=== PATIENT | male | born 1980 | race Hispanic/Latino ===

== ENCOUNTER 2021-11-26 00:12 | Inpatient (IN) | payer SELFPAY ==
[2021-11-26 01:03] LABS: #Lymphocytes 2.1 thou/uL (1.20-3.40); #Monocytes 0.5 thou/uL (0.11-0.59); #Neutrophils 5.7 thou/uL (1.40-6.50); %Basophils 0.2 % (0.0-1.0); %Eosinophils 0.4 % (0.0-10.0); %Lymphocytes 24.9 % (21.0-51.0); %Monocytes 5.5 % (0.0-10.0); Hemoglobin 15.3 g/dL (14.0-18.0); Mean Corpuscular HGB CONC 34.2 g/dL (32.0-36.0); Mean Corpuscular Hemoglobin 31.9 pg (27.0-31.0); Mean Platelet Volume 7.7 fL (7.4-10.4); Platelet Count 178 thou/uL (130-400); RBC Distribution Width 11.3 % (11.5-14.5); Red Blood Cell (RBC) Count 4.81 mill/uL (4.70-6.10); White Blood Cell (WBC) Count 8.3 thou/uL (4.8-10.8)
[2021-11-26 01:24] LABS: ALT (SGPT) 199 U/L (8-55); AST (SGOT) 104 U/L (5-34); Albumin 3.7 g/dL (3.5-5.0); Alkaline Phosphatase 68 U/L (40-110); Anion Gap 16 mmol/L (10-20); BUN (Urea Nitrogen) 13 mg/dL (8.9-20.6); Bilirubin, Total 1.7 mg/dL (0.2-1.2); Calc. Creatinine Clearance 0 mL/min (70-130); Calcium 8.3 mg/dL (7.8-10.44); Carbon Dioxide 20 mmol/L (22-29); Chloride 100 mmol/L (98-107); Globulin 2.6 g/dL (2.4-3.5); Glucose 481 mg/dL (70-105); Potassium 4.1 mmol/L (3.5-5.1); Protein, Total 6.3 g/dL (6.0-8.3); Sodium 132 mmol/L (136-145)
[2021-11-26 02:40] VITALS: BMI 28.8
[2021-11-26 03:10] LABS: SARS-CoV-2 NAA Rapid Test Not Detected (NotDetected)
[2021-11-26] MEDS ORDERED: Dextrose 5% in Water 1,000 ML IV PRN (04:01)
[2021-11-26] MEDS ORDERED: Ondansetron PF 4 MG/2 ML Vial IVP PRN (04:01)
[2021-11-26] MEDS ORDERED: Ondansetron ODT 4 MG TAB PO PRN (04:01)
[2021-11-26] MEDS ORDERED: traMADol HCl 50 MG TAB PO PRN (04:01)
[2021-11-26] MEDS ORDERED: Dextrose 50% Abboject 50 ML SYRINGE SLOW IVP PRN (04:01)
[2021-11-26] MEDS: HumaLOG 300 UNITS/3 ML VIAL SC PRN ×2 (04:29→14:09)
[2021-11-26] MEDS: traMADol HCl 50 MG TAB PO SCH ×3 (04:30→16:15)
[2021-11-26] MEDS: Acetaminophen 500 MG TAB PO SCH ×3 (04:30→16:13)
[2021-11-26] MEDS: Ibuprofen 200 MG TAB PO SCH ×3 (04:30→16:14)
[2021-11-26] MEDS: Lactated Ringer's 1,000 ML IV SCH ×2 (04:31→14:08)
[2021-11-26] MEDS ORDERED: ceFAZolin 2 GM/Dextrose 50 ML 2 GM in Premix Bag 1 BAG IVPB SCH (06:45)
[2021-11-26 08:57] VITALS: TEMP 98.4
[2021-11-26] MEDS ORDERED: Famotidine 20 MG TAB PO SCH (09:00)
[2021-11-26 09:45] LABS: Magnesium 1.7 mg/dL (1.6-2.6); Phosphorus 2.1 mg/dL (2.3-4.7)
[2021-11-26] MEDS ORDERED: ceFAZolin 2 GM/Dextrose 50 ML IVPB ONE (10:08)
[2021-11-26] MEDS ORDERED: Midazolam HCl 2 mg/2 ml Vial ONE (10:08)
[2021-11-26] MEDS ORDERED: Fentanyl 100 MCG/2 ML VIAL ONE ×2 (10:14→11:37)
[2021-11-26] MEDS ORDERED: Lidocaine 1% PF 5 ML VIAL ONE (10:34)
[2021-11-26] MEDS ORDERED: Dexamethasone 20 MG/5 ML VIAL ONE (10:34)
[2021-11-26] MEDS ORDERED: Ondansetron PF 4 MG/2 ML Vial ONE (10:34)
[2021-11-26] MEDS ORDERED: PROPOFOL 200 MG/20 ML VIAL ONE (10:34)
[2021-11-26] MEDS ORDERED: Ketorolac Tromethamine 30 MG/ML VIAL ONE (10:34)
[2021-11-26] MEDS ORDERED: Bupivacaine PF 0.5% 30 ML VIAL ONE (10:41)
[2021-11-26] MEDS ORDERED: ceFAZolin Sodium/D5W 2 GM in Premix Bag 1 BAG IVPB SCH (18:00)
[2021-11-26 20:06] VITALS: BP 156/93
== END 2021-11-26 19:45 | disposition home or self-care (01) | DRG 493 ==
LOC: ERS 00:12 → SURG B 01:26
PROVIDERS: ADMIT Specialist; ATTEND Specialist
PROC: 0QSJ04Z Reposition Right Fibula with Internal Fixation Device, Open Approach (ICD-10-PCS; principal; 2021-11-26)
DX: S82.851A Displaced trimalleolar fracture of right lower leg, initial encounter for closed fracture (principal); N17.9 Acute kidney failure, unspecified; Z20.822 Contact with and (suspected) exposure to COVID-19; X58.XXXA Exposure to other specified factors, initial encounter; F10.129 Alcohol abuse with intoxication, unspecified; R73.9 Hyperglycemia, unspecified
CPT/HCPCS: 36415; 36416; 76000; 80053; 83735; 84100; 85025; C1713; C1874; J0690; J1100; J1815; J1885; J2250; J2405; J2704; J3010; J3475; J3490; J7120; S0020; U0002